=== PATIENT | female | born 1995 | race Caucasian/White ===

== ENCOUNTER 2022-06-28 07:30 | Emergency (ER) | payer SELFPAY ==
[2022-06-28 08:25] LABS: STREPTOCOCCUS GRP A ANTIGEN NEGATIVE (NEGATIVE)
[2022-06-28 08:35] LABS: INFLUENZAE A&B ANTIGEN (RAPID) POSITIVE FLU A (NEGATIVE)
[2022-06-28] MEDS ORDERED: FLONASE ALLERG9.9 ML INH (08:50)
[2022-06-28] MEDS ORDERED: IBUPROFEN800 MG PO (08:50)
[2022-06-28] MEDS ORDERED: BENZONATATE100 MG PO (08:50)
== END 2022-06-28 08:53 | disposition home or self-care (01) ==
LOC: ER 07:36
DX: R50.9 Fever, unspecified (principal); J10.1 Influenza due to other identified influenza virus with other respiratory manifestations; R05.9 Cough, unspecified; E03.9 Hypothyroidism, unspecified; Z20.822 Contact with and (suspected) exposure to COVID-19
CPT/HCPCS: 83518; 87070; 87400; 99283; U0002